=== PATIENT | male | born 1955 | race Caucasian/White ===

== ENCOUNTER 2020-07-03 08:07 | Emergency (ER) | payer BC, SELFPAY ==
[2020-07-03 08:15] VITALS: BP 151/111; PULSE 101; RESP 17; TEMP 36.9; O2SAT 97; BMI 25.7
[2020-07-03] MEDS: diphenhydrAMINE HCL 25 MG TABLET PO (09:09)
[2020-07-03] MEDS: predniSONE 20 MG TABLET 60 MG PO (09:09)
--- NOTE | 2020-07-03 09:09 | ED.GENADULT ---
HPI - General Adult General Chief complaint: General Medical Stated complaint: POISON TANISHA Time Seen by Provider: 07/03/20 08:57 Source: patient Mode of arrival: ambulatory Limitations: no limitations History of Present Illness HPI narrative: 65 y/o male presenting to the ER from home c/o poison rash to his face and arms that started yesterday. He reports picking a small poison tanisha plant out of his garden with his bare hands 2 days ago. He has a known allergy to poison tanisha so he washed his hands right away. He woke up the next day with lesions on his LUE and his eyes. He thinks he itched his eyes after he was exposed. He denies trauma to his eyes, vision changes, discharge or pain. The lesions are extremely itchy and he did not sleep well last night due to the itching and swelling of his eyelids. MD complaint: rash Onset (ago): day(s) (1) Location: face, left and upper extremity Radiation: non-radiation Severity: moderate Quality: burning and other (ithcing) Pain Consistency: constant Relieving factors: cold therapy and medication Exacerbating factors: none Associated symptoms: rash Treatments prior to arrival: none Related Data Previous Rx's Medication Instructions Recorded prednisone 10 mg PO PER PKG DIR #48 ea 07/03/20 Allergies Allergy/AdvReac Type Severity Reaction Status Date / Time poison tanisha extract Allergy Swelling Verified 07/03/20 08:53 Review of Systems Review of Systems: Constitutional: No Fever, No Chills ENT/Mouth: No sore throat, No Rhinorrhea, No Swallowing Difficulty Eyes: No Eye Pain, +Swelling, No Redness Cardiovascular: No Chest Pain, No SOB Respiratory: No Cough, No Sputum Gastrointestinal: No Nausea, No Vomiting Musculoskeletal: No joint pain, No Myalgias Skin: No Skin Lesions, + rash Neuro: No Headache Heme/Lymph: No Bruising, No Lymphadenopathy PMFSH Past Medical History Attestation statement: The following information was validated with the patient. Social History Social History Advance Directives: Yes Advance Directives Information Provided: No Advance Directives on File: No Physical Exam Vital Signs: Vital Signs: Last Vital Signs Temp 98.5 F 07/03/20 08:15 Pulse 101 H 07/03/20 08:15 Resp 17 07/03/20 08:15 BP 151/111 H 07/03/20 08:15 Pulse Ox 97 05/16/21 08:15 Body Mass Index 25.7 Appearance: Alert. Oriented X3. No acute distress. Eyes: bilaterally upper eyelid edema with small erythematous blister on the right eyelid, PERRLA, EOMI, no scleral or conjunctival injection ENT: Pharynx normal. Neck: Normal inspection. Neck supple. CVS: Normal heart rate and rhythm. Pulses normal. Respiratory: No respiratory distress. Breath sounds normal. Skin: Skin warm and dry. Normal skin color. Normal skin turgor. Extremities: No lower extremity edema. Left UE with erythematous blistering papules in AC area and forearm. No lesions on LE. Neuro: Oriented X 3. Non-focal. Course Course Course Narrative: 65 y/o male presenting with a pruritic rash to his face and left arm after known poison exposure. No eye pain or vision changes, no trauma to the eye. No suspected lesions on the eye itself. Given location and swelling will treat with PO prednisone taper. Patient counseled on management and course. He will f/u with his PCP this week or come back to the ER if symptoms worse. Stable for d/c. Critical Care Time Critical Care Time Critical Care Time: No Discharge Plan Discharge Clinical Impression: Allergic dermatitis due to poison tanisha Patient Disposition: Home, Self-Care Instructions: Poison Tanisha (ED), Cold Compress or Soak (ED) Additional Instructions: Take the prescribed Prednisone taper as directed. Take the entire course, do not stop it early or it may cause worsening rash. Start taking it tomorrow morning, you were given your 1st dose today in the ER. Take Benadryl 25 -50 mg every 6 hours as needed for itching. Use cool compresses to the area to help with itching. Avoid scratching. Follow up with your doctor as needed. If you have worsening symptoms come back to the ER for further evaluation. Prescriptions: New prednisone 10 mg tablets,dose pack 10 mg PO PER PKG DIR Qty: 48 RF: 0 Discharge Date/Time: 07/03/20 09:13
== END 2020-07-03 09:13 | disposition home or self-care (01) ==
PROVIDERS: Emergency Provider Emergency Medicine; PCP Family Medicine
DX: L23.7 Allergic contact dermatitis due to plants, except food (principal); Z79.899 Other long term (current) drug therapy
CPT/HCPCS: 99283; Q0163